=== PATIENT | male | born 1980 | race Caucasian/White ===

== ENCOUNTER 2018-09-19 18:57 | Emergency (ER) | payer SELFPAY ==
[~2018-09-19] VITALS: Ht 162.6 cm; Wt 81.7 kg
[~2018-09-19 18:57] MED LIST: ASPI500 PO; CYCL10 PO; HYDACE5 PO; HYDACE5325 PO; HYDMOR2 PO; HYDMOR4 PO; HYDR1TAB94 PO; HYDROMORPHONE HCL; IBUP800; IBUP800 PO; ISODICACE; NAPR500 PO; Norco 5-325 Ta1 EACH PO; OXYACE5T PO; PENVK500 PO; PROM50S PR; RXCYCL10 PO; RXHYD5325 PO; RXSULTRIDS PO; SULTRIDS PO
== END 2018-09-19 21:40 | disposition left against medical advice (07) ==
LOC: ER 18:57
DX: H57.11 Ocular pain, right eye (principal); Z53.20 Procedure and treatment not carried out because of patient's decision for unspecified reasons
CPT/HCPCS: 99282